=== PATIENT | female | born 1980 | race Caucasian/White ===

== ENCOUNTER 2020-04-14 07:37 | Day surgery (SDC) | payer OTHER ==
[2020-04-14] MEDS ORDERED: ASPIRIN EC 325 MG TAB PO ONE (08:20)
[2020-04-14] MEDS ORDERED: SODIUM CHLORIDE 0.9% 500 ML 500 ML IV SCH (09:00)
[2020-04-14 09:16] LABS: Basophils % (Auto) 0.8 % (0.0-1.8); Eosinophils # (Auto) 0.1 K/mm3 (0.0-0.4); Eosinophils % (Auto) 2.3 % (0.0-4.3); Hematocrit 41.2 % (30.3-42.9); Hemoglobin 13.7 gm/dl (10.1-14.3); Lymphocytes # (Auto) 1.5 K/mm3 (1.2-5.4); Lymphocytes % (Auto) 25.8 % (13.4-35.0); Mean Corpuscular HGB Conc 33 % (30-34); Mean Corpuscular Volume 81 fl (79-97); Monocytes # (Auto) 0.5 K/mm3 (0.0-0.8); Monocytes % (Auto) 7.9 % (0.0-7.3); Platelet Count 286 K/mm3 (140-440); Red Blood Count 5.13 M/mm3 (3.65-5.03); Red Cell Distribution Width 12.9 % (13.2-15.2)
[2020-04-14 09:29] LABS: BUN/Creatinine Ratio 15; Blood Urea Nitrogen 12 mg/dL (7-17); Calcium 9.9 mg/dL (8.4-10.2); Hemolysis Index 0
[2020-04-14 09:30] LABS: INR 0.94 (0.87-1.13)
[2020-04-14] MEDS ORDERED: VERAPAMIL 5 MG/2 ML INJ ONE (09:56)
[2020-04-14] MEDS ORDERED: HEPARIN/NS 5000 UNIT/500ML 1,000 ML IR ONE (09:56)
[2020-04-14] MEDS ORDERED: HEPARIN 10,000 UNITS/10 ML VIAL ONE (09:56)
[2020-04-14] MEDS ORDERED: fentaNYL 100 MCG/2 ML INJ ONE (09:56)
[2020-04-14] MEDS ORDERED: MIDAZOLAM 2 MG/2 ML INJ ONE (09:56)
[2020-04-14] MEDS ORDERED: LIDOCAINE (2%) 20 MG/1 ML VIAL 20 ML MDV INFILTRATI ONE ×2 (09:57→10:34)
[2020-04-14] MEDS ORDERED: NITROGLYCERIN SYRINGE 3 ML ONE (09:58)
[2020-04-14] MEDS ORDERED: MIDAZOLAM 2 MG/2 ML INJ IV ONE (10:32)
[2020-04-14] MEDS ORDERED: fentaNYL 100 MCG/2 ML INJ IV ONE (10:32)
[2020-04-14] MEDS ORDERED: NITROGLYCERIN 600 MCG/3 ML SYRINGE ART-SHEATH ONE (10:35)
[2020-04-14] MEDS ORDERED: HEPARIN 10,000 UNITS/10 ML VIAL ART-SHEATH ONE (10:35)
[2020-04-14] MEDS ORDERED: VERAPAMIL 5 MG/2 ML INJ ART-SHEATH ONE (10:35)
[2020-04-14] MEDS ORDERED: ONDANSETRON 4 MG/2 ML INJ ONE (10:37)
[2020-04-14] MEDS ORDERED: diphenhydrAMINE 50 MG/ML VIAL ONE (10:38)
[2020-04-14] MEDS ORDERED: ONDANSETRON 4 MG/2 ML INJ IV ONE (10:40)
[2020-04-14] MEDS ORDERED: methylPREDNISolone Sod Succinate 125 MG/2 ML INJ IV ONE (10:40)
[2020-04-14] MEDS ORDERED: methylPREDNISolone Sod Succinate 125 MG/2 ML INJ ONE (10:40)
[2020-04-14] MEDS ORDERED: FAMOTIDINE 20 MG/2 ML INJ IV ONE ×2 (10:40→10:41)
[2020-04-14] MEDS ORDERED: diphenhydrAMINE 50 MG/ML VIAL IV ONE (10:40)
--- NOTE | 2020-04-14 11:11 | Cardiac Catherization Report ---
REFERRING PHYSICIAN: Dr. Jhon Mullins INDICATION FOR PROCEDURE: The patient is a pleasant 40-year-old [place] female with recurrent chest pain, shortness of breath. She is referred for left heart catheterization. Risks, benefits, potential alternatives explained at length prior to obtaining informed consent. PROCEDURE IN DETAIL: The patient was brought to the catheterization lab in a postabsorptive state, prepped and draped in sterile fashion. Tylor's test in right hand was normal. A 2 mL of 2% lidocaine used to anesthetize the right wrist. A standard 6-Gabonese hydrophilic sheath used to cannulate the right radial artery via modified Seldinger technique. All exchanges performed to exchange a J-tip guidewire. JL3.5 catheter used to engage the left main. No dampening or ventricularization. Cineangiography performed in all projections. After we performed angiography of the left system, she developed a bout of nausea, which was self limited. No vagal episode noted. This lasted about 30 seconds. Proceed with the remainder of the catheterization. JR4 used to cross the aortic valve under fluoroscopic guidance. Left ventriculography performed in 30 LOJA and 30 TELUGU projections via hand injections, catheter flushed. Manual pullback performed with continuous pressure monitoring. Catheter used to engage the right coronary. No dampening or ventricularization. Cineangiography performed in all projections. Next, a catheter removed from the body of wire, sheath removed. Manual pressure used to achieve hemostasis. She is feeling completely normal and well after the cath. No immediate complications. No chest pain or shortness of breath. DATA: Aortic pressure is 140/90, LV pressure is 140. LVEDP of 18 mmHg. Left ventriculography reveals normal systolic performance with estimated ejection fraction of 55-60%. No evidence of aortic stenosis. CORONARY ANATOMY: This is a right dominant system. Left main without significant disease, bifurcates left anterior descending and left circumflex, moderate sized vessel, courses AV groove. No significant disease. LAD is a moderate sized vessel, courses anterior intergroove, wraps around the apex intramyocardial segments noted in the mid segment, but no significant disease identified. Left ventriculography reveals normal systolic performance with estimated ejection fraction of 55-60%. No evidence of aortic stenosis. The right is a moderate sized vessel, courses AV groove. No significant disease noted. CONCLUSIONS: 1. No angiographic evidence of significant epicardial coronary disease in this right dominant system. 2. Normal left ventricular systolic performance, estimated ejection fraction of 55-60%. 3. No evidence of aortic stenosis. 4. High normal LVEDP. The patient is clinically stable. We will watch her for a few hours in recovery given her episode of nausea. The patient is clinically doing well now. We will discuss with family, standard radial care, Dr. Mullins is also notified of results. The patient will follow up with him in the office, aggressive risk factor modification. Primary significant prevention measures discussed. JOB# [id number] DIXON/NIDA
[2020-04-14 12:34] VITALS: BP 114/71
--- NOTE | 2020-04-15 15:39 | Short Stay Summary ---
Short Stay Documentation Date of service: 04/14/20 - History H&P: obtained from office - Allergies and Medications Current Medications: Allergies No Known Allergies Allergy (Verified 04/14/20 08:20) - Brief post op/procedure progress note Date of procedure: 04/14/20 Pre-op diagnosis: SOB Post-op diagnosis: other (normal coronaries) Procedure: [facility] - see dictated cath report Anesthesia: local Estimated blood loss: none Condition: stable - Disposition Condition at discharge: Good Disposition: [id number] TO HOME OR SELFCARE - Discharge Diagnoses (1) Normal coronary arteries Status: Chronic Short Stay Discharge Plan Activity: advance as tolerated Diet: low fat, low cholesterol, low salt Wound: open to air, keep clean and dry, per your surgeon's advice Follow up with: HARPREET VENTURA MD [Primary Care Provider] - 7 Days Forms: CardCath PCI D/C Instructions
== END 2020-04-14 13:05 | disposition home or self-care (01) ==
LOC: CATHLABREC 07:37
PROVIDERS: ATTEND Internal Medicine
DX: R07.89 Other chest pain (principal); R06.02 Shortness of breath; I73.9 Peripheral vascular disease, unspecified; J45.909 Unspecified asthma, uncomplicated; Z98.890 Other specified postprocedural states
CPT/HCPCS: 36415; 80048; 85025; 85610; 85730; 93005; 93458; 99156; 99157; C1894; J1200; J1644; J2250; J2405; J2930; J3010; J7040; Q9967